=== PATIENT | male | born 1965 | race Caucasian/White ===

== ENCOUNTER 2020-05-31 19:08 | Emergency (ER) | payer MEDICAID ==
[~2020-05-31] VITALS: Ht 180.3 cm; Wt 86.4 kg
[2020-05-31 20:57] VITALS: BP 149/99
== END 2020-05-31 20:57 | disposition home or self-care (01) ==
LOC: EMS 19:10
DX: S81.832A Puncture wound without foreign body, left lower leg, initial encounter (principal); S80.812A Abrasion, left lower leg, initial encounter; F11.90 Opioid use, unspecified, uncomplicated; F17.210 Nicotine dependence, cigarettes, uncomplicated; W25.XXXA Contact with sharp glass, initial encounter; Y93.89 Activity, other specified; Y92.89 Other specified places as the place of occurrence of the external cause; Y99.8 Other external cause status
CPT/HCPCS: 12001; Z7502